=== PATIENT | male | born 1990 | race Caucasian/White ===

== ENCOUNTER 2021-04-11 22:37 | Emergency (ER) | payer OTHER, SELFPAY ==
[~2021-04-11] VITALS: Ht 172.7 cm; Wt 124.5 kg
--- NOTE | 2021-04-11 23:47 | NUR ---
PT RESTING IN [facility] STATES HAVING RANDOM BOUTS OF SOB AND ANXIETY THAT WAKE HIM UP FROM SLEEP. PT STATES FEELING BETTER AT THIS TIME. PT PROVIDED WARM BLANKET, LIGHTS OUT AND PLACED ON ALL MONITORS TO DECREASE ANXIETY
[2021-04-11 23:49] VITALS: BP 157/92
[2021-04-12 00:02] LABS: BASOPHILS % (AUTO) 1 % (0-1); EOSINOPHILS % (AUTO) 3 % (1-7); LYMPHOCYTES % (AUTO) 39 % (22-44); MEAN CORPUSCULAR HEMOGLOBIN 29.7 pg (27.5-34.5); MEAN CORPUSCULAR HGB CONC 34.9 g/dL (33.2-36.2); MEAN PLATELET VOLUME 9.1 fL (7.4-10.4); MONOCYTES % (AUTO) 11 % (2-9); NEUTROPHILS % (AUTO) 46 % (42-75); PLATELET COUNT 223 x10^3/uL (130-400); RED BLOOD COUNT 4.82 x10^6/uL (4.38-5.82); RED CELL DISTRIBUTION WIDTH 13.1 % (9.4-14.8)
[2021-04-12 00:04] LABS: MD NO
[2021-04-12 00:09] LABS: ALANINE AMINOTRANSFERASE 49 U/L (12-78); ALBUMIN 3.8 g/dL (3.4-5.0); ANION GAP 7 mmol/L (5-15); CALCIUM 8.5 mg/dL (8.5-10.1); CHLORIDE 109 mmol/L (98-107); CREATININE 0.87 mg/dL (0.7-1.3)
[2021-04-12 00:20] LABS: ALKALINE PHOSPHATASE 77 U/L (45-117); BILIRUBIN,TOTAL 0.4 mg/dL (0.2-1.0); T4 (THYROXINE) 9.6 mcg/dL (4.5-12.1); TOTAL PROTEIN 6.9 g/dL (6.4-8.2); TROPONIN I < 0.015 ng/mL (0.000-0.045)
== END 2021-04-12 01:41 | disposition home or self-care (01) ==
LOC: ED 04-12 01:26
DX: R07.2 Precordial pain (principal); R06.00 Dyspnea, unspecified; R06.02 Shortness of breath; R00.2 Palpitations; R94.31 Abnormal electrocardiogram [ECG] [EKG]; Z87.891 Personal history of nicotine dependence
CPT/HCPCS: 36415; 71045; 80053; 83735; 84436; 84443; 84484; 85025; 93005; 99285; 99406

== ENCOUNTER → 2021-06-15 | Outpatient (CLI) | payer OTHER | END | disposition home or self-care (01) | LOC: CVU 12:40 | PROVIDERS: ATTEND Internal Medicine Cardiovascular Disease | DX: I08.1 Rheumatic disorders of both mitral and tricuspid valves (principal); I11.9 Hypertensive heart disease without heart failure | CPT/HCPCS: 93306; 93356 ==